=== PATIENT | male | born 1980 | race Caucasian/White ===

== ENCOUNTER 2019-06-18 19:37 | Emergency (ER) | payer OTHER ==
[~2019-06-18] VITALS: Ht 167.6 cm; Wt 72.6 kg
[2019-06-18 22:13] VITALS: BP 113/65
== END 2019-06-18 22:14 | disposition other institution (70) ==
LOC: ED 19:37
DX: R51 Headache (principal); J32.9 Chronic sinusitis, unspecified; Z88.0 Allergy status to penicillin

== ENCOUNTER 2019-06-18 19:37 | Emergency (ER) | payer OTHER | END 2019-06-18 22:14 | disposition other institution (70) | LOC: ED 19:37 | DX: Z02.89 Encounter for other administrative examinations (principal) ==